=== PATIENT | female | born 1960 | race African-American/Black ===

== ENCOUNTER 2019-04-26 21:00 | Emergency (ER) | payer MEDICAID ==
[~2019-04-26] VITALS: Ht 160 cm; Wt 77.6 kg
[2019-04-26 21:15] VITALS: BP 163/90
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
[2019-04-26 21:57] LABS: BILIRUBIN,URINE NEGATIVE (NEG); CLARITY,URINE TURBID; COLOR,URINE RED; NITRITE,URINE POSITIVE (NEG); PH,URINE 5.5; PROTEIN,URINE >=300 mg/dL (NEG-TRACE)
[2019-04-26 22:05] LABS: BACTERIA,URINE MANY /HPF (0-FEW); RBC,URINE TNTC /HPF (0-2); SQUAMOUS EPITHELIAL CELL,UR FEW /LPF; WBC,URINE TNTC /HPF (0-4)
[2019-04-26] MEDS ORDERED: CEPH-264 PO (22:09)
== END 2019-04-26 22:15 | disposition home or self-care (01) ==
LOC: ER 21:00
DX: N39.0 Urinary tract infection, site not specified (principal); I10 Essential (primary) hypertension; Z86.73 Personal history of transient ischemic attack (TIA), and cerebral infarction without residual deficits; Z90.710 Acquired absence of both cervix and uterus
CPT/HCPCS: 81001; 87086; 99284

== ENCOUNTER 2019-10-21 11:43 | Emergency (ER) | payer MEDICAID ==
[~2019-10-21] VITALS: Ht 160 cm; Wt 68.1 kg
[~2019-10-21 11:43] MED LIST: CEPH-264 PO
[2019-10-21 12:27] VITALS: BP 144/90
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
[2019-10-21] MEDS ORDERED: CYCL10TA2 PO (14:24)
[2019-10-21] MEDS ORDERED: ACET-704 PO (14:24)
== END 2019-10-21 14:58 | disposition home or self-care (01) ==
LOC: ER 11:43
DX: S16.1XXA Strain of muscle, fascia and tendon at neck level, initial encounter (principal); S20.219A Contusion of unspecified front wall of thorax, initial encounter; M54.6 Pain in thoracic spine; I97.821 Postprocedural cerebrovascular infarction following other surgery; I10 Essential (primary) hypertension; F17.200 Nicotine dependence, unspecified, uncomplicated; Z90.710 Acquired absence of both cervix and uterus; Z98.890 Other specified postprocedural states; V89.2XXA Person injured in unspecified motor-vehicle accident, traffic, initial encounter; Y93.89 Activity, other specified; Y92.89 Other specified places as the place of occurrence of the external cause; Y99.8 Other external cause status
CPT/HCPCS: 71120; 72040; 99284

== ENCOUNTER 2021-04-25 00:15 | Emergency (ER) | payer OTHER, MEDICAID ==
[2020-07-27 10:46] VITALS: BP 127/83
[~2021-04-25 00:15] MED LIST changes: +ACET-704 PO; +ASPI-886 PO; +CYCL10TA2 PO; +DULO60CA45 PO; +EZET10TA20 PO; +FENO160T PO; +GABA-585 PO; +LIPITOR80 MG PO; +LISI20TA18 PO
[2021-04-25] MEDS ORDERED: HYDROcodone/APAP 5/325MG 1 TAB TABLET PO ONE (04:00)
[2021-04-25] MEDS ORDERED: HYDROcodone/APAP 5/325MG 1 TAB TABLET ONE (04:16)
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
== END 2021-04-25 03:00 | disposition home or self-care (01) ==
LOC: ER 00:15
DX: S92.402A Displaced unspecified fracture of left great toe, initial encounter for closed fracture (principal); W22.8XXA Striking against or struck by other objects, initial encounter; Y93.89 Activity, other specified; Y92.89 Other specified places as the place of occurrence of the external cause; Y99.8 Other external cause status
CPT/HCPCS: 73630; 99283